=== PATIENT | female | born 1955 ===

== ENCOUNTER 2020-02-09 20:48 | Emergency (ER) | payer MEDICARE ==
--- NOTE | 2020-02-10 02:08 | Emergency Department Report ---
ED Medical Clearance HPI - General Chief complaint: Medical Clearance Stated complaint: FAILURE TO THRIVE Time Seen by Provider: 02/10/20 02:00 Source: EMS Mode of arrival: Stretcher - History of Present Illness Initial comments: 64-year-old -Turkish female comes back to the emergency room after being discharged 02/08/20 and was transported home. Patient got home with EMS and there is nobody to accept her. Patient is a total care patient. Patient was returned back to the emergency room in we will evaluate him medically clear her for case management. Patient reports she does not have any family. MD Complaint: medical clearance request Home medications: Home Medications Medication Instructions Recorded Confirmed Last Taken Triamter/Hctz 75-50 mg (Nf) 1 tab PO QDAY 02/21/14 02/10/20 02/09/20 09:00 [Maxzide 75-50 mg] 1 tab Esomeprazole Magnesium [NexIUM] 40 mg PO QDAY 02/01/20 02/10/20 02/09/20 09:00 40 mg Previous Rx's Medication Instructions Recorded Last Taken Type Potassium Chloride [K-Dur] 20 meq PO QDAY #3 tablet 02/21/14 02/09/20 09:00 Rx 20 mEq Cyproheptadine [Periactin] 8 mg PO Q8HR #14 tablet 02/06/20 02/09/20 09:00 Rx 8 mg Warfarin [Coumadin] 1 mg PO DAILY@1700 #30 tablet 02/08/20 02/09/20 17:00 Rx 1 mg Allergies/Adverse reactions: Allergies Allergy/AdvReac Type Severity Reaction Status Date / Time ciprofloxacin [From Cipro] Allergy Hives Verified 02/21/14 01:42 ciprofloxacin HCl Allergy Hives Verified 02/21/14 01:42 [From Cipro] codeine Allergy Nausea Verified 02/21/14 01:35 erythromycin base Allergy Hives Verified 02/21/14 01:42 [Erythromycin Base] levofloxacin [From Levaquin] Allergy Hives Verified 02/21/14 01:42 Penicillins Allergy Hives Verified 02/21/14 01:35 ED Review of Systems ROS: Stated complaint: FAILURE TO THRIVE Other details as noted in HPI Comment: All other systems reviewed and negative ED Past Medical Hx - Past Medical History Hx Hypertension: Yes Additional medical history: TMJ - Social History Smoking Status: Never Smoker - Medications Home Medications: Home Medications Medication Instructions Recorded Confirmed Last Taken Type Potassium Chloride [K-Dur] 20 meq PO QDAY #3 tablet 02/21/14 02/10/20 02/09/20 09:00 Rx 20 mEq Triamter/Hctz 75-50 mg (Nf) 1 tab PO QDAY 02/21/14 02/10/20 02/09/20 09:00 History [Maxzide 75-50 mg] 1 tab Esomeprazole Magnesium [NexIUM] 40 mg PO QDAY 02/01/20 02/10/20 02/09/20 09:00 History 40 mg Cyproheptadine [Periactin] 8 mg PO Q8HR #14 tablet 02/06/20 02/10/20 02/09/20 09:00 Rx 8 mg Warfarin [Coumadin] 1 mg PO DAILY@1700 #30 tablet 02/08/20 02/10/20 02/09/20 17:00 Rx 1 mg ED Physical Exam - General Limitations: Physical Limitation General appearance: alert, in no apparent distress, cachectic - Head Head exam: Present: atraumatic, normocephalic - Eye Eye exam: Present: normal appearance - ENT ENT exam: Present: mucous membranes moist - Neck Neck exam: Present: normal inspection - Respiratory Respiratory exam: Present: normal lung sounds bilaterally. Absent: respiratory distress - Cardiovascular Cardiovascular Exam: Present: regular rate, normal rhythm. Absent: systolic murmur, diastolic murmur, rubs, gallop - GI/Abdominal GI/Abdominal exam: Present: soft, normal bowel sounds - Extremities Exam Extremities exam: Present: normal inspection - Back Exam Back exam: Present: normal inspection - Neurological Exam Neurological exam: Present: alert, oriented X3 - Psychiatric Psychiatric exam: Present: normal affect, normal mood - Skin Skin exam: Present: warm, dry, intact, normal color. Absent: rash ED Course Vital Signs 02/10/20 02/10/20 02:26 10:58 Temperature 98.2 F Pulse Rate 78 Respiratory 14 18 Rate Blood Pressure 123/78 [Left] O2 Sat by Pulse 100 100 Oximetry ED Medical Decision Making - Lab Data Result diagrams: 02/10/20 09:17 - Medical Decision Making 64-year-old -Turkish female comes back to the emergency room after being discharged 02/08/20 and was transported home. Patient got home with EMS and there is nobody to accept her. Patient is a total care patient. Patient was returned back to the emergency room in we will evaluate him medically clear her for case management. Patient reports she does not have any family. Case management has been ordered. ED Disposition Clinical Impression: Hypokalemia, Weakness, Debility, unspecified Pulmonary embolism Qualifiers: Pulmonary embolism type: other Chronicity: unspecified Acute cor pulmonale presence: unspecified Qualified Code(s): I26.99 - Other pulmonary embolism without acute cor pulmonale Disposition: [id number] ANOTHER TYPE [id number] Is pt being admited?: No Does the pt Need Aspirin: No Condition: Stable Instructions: Warfarin (By mouth) Additional Instructions: As per hospitalist instruction. Referrals: PRIMARY CARE, [Primary Care Provider] - 3-5 Days
[2020-02-10 02:27] VITALS: BP 123/78
[2020-02-10 10:05] LABS: C-Reactive Protein 4.4 mg/dL (0.00-1.30)
[2020-02-10] MEDS ORDERED: PANTOPRAZOLE 40 MG TAB PO ONE (11:00)
[2020-02-10] MEDS ORDERED: POTASSIUM CHLORIDE ER 20 MEQ TAB PO ONE (11:00)
[2020-02-10 11:03] LABS: INR 1.4 (0.87-1.13)
[2020-02-10] MEDS: CYPROHEPTADINE 4 MG TAB PO SCH ×2 (14:08→14:09)
[2020-02-10] MEDS ORDERED: WARFARIN 2 MG TAB PO SCH (17:00)
[2020-02-11] MEDS ORDERED: TRIAMTER/HCTZ 37.5-25 MG TAB PO SCH (11:00)
== END 2020-02-10 16:46 | disposition other institution (70) ==
LOC: ED 20:48
DX: Z20.828 Contact with and (suspected) exposure to other viral communicable diseases (principal); R62.7 Adult failure to thrive; I10 Essential (primary) hypertension; Z79.899 Other long term (current) drug therapy; Z88.0 Allergy status to penicillin; Z88.1 Allergy status to other antibiotic agents; Z88.8 Allergy status to other drugs, medicaments and biological substances
CPT/HCPCS: 36415; 82728; 82947; 83615; 84145; 85379; 85610; 86140; 99283; U0003